=== PATIENT | female | born 1960 | race Caucasian/White ===

== ENCOUNTER → 2017-11-21 | Outpatient (REF) | payer MEDICARE, BC | LOC: M LAB REF 12:40 | DX: C44.622 Squamous cell carcinoma of skin of right upper limb, including shoulder (principal) | CPT/HCPCS: 88305 ==

== ENCOUNTER → 2018-07-03 | Outpatient (REF) | payer BC, MEDICARE | LOC: M LAB REF 17:37 | DX: L81.4 Other melanin hyperpigmentation (principal); L90.5 Scar conditions and fibrosis of skin ==

== ENCOUNTER → 2019-03-27 | Outpatient (REF) | payer MEDICARE, OTHER | LOC: M LAB LCGH 15:33 | PROVIDERS: ATTEND Physician Assistant | DX: C44.622 Squamous cell carcinoma of skin of right upper limb, including shoulder (principal) ==

== ENCOUNTER → 2019-05-05 | Outpatient (REF) | payer MEDICARE, OTHER | LOC: M LAB REF 20:20 | PROVIDERS: ATTEND Surgery | DX: C44.622 Squamous cell carcinoma of skin of right upper limb, including shoulder (principal) ==

== ENCOUNTER → 2019-05-21 | Outpatient (REF) | payer OTHER | LOC: M LAB REF 18:50 | PROVIDERS: ATTEND Surgery | DX: D04.61 Carcinoma in situ of skin of right upper limb, including shoulder (principal); D04.62 Carcinoma in situ of skin of left upper limb, including shoulder; L57.0 Actinic keratosis ==

== ENCOUNTER → 2019-09-24 | Outpatient (REF) | payer MEDICARE, OTHER | LOC: M LAB REF 15:31 | PROVIDERS: ATTEND Surgery | DX: C44.722 Squamous cell carcinoma of skin of right lower limb, including hip (principal) ==

== ENCOUNTER → 2019-11-13 | Outpatient (REF) | payer MEDICARE | LOC: M LAB REF 09:28 | PROVIDERS: ATTEND Surgery | DX: C44.622 Squamous cell carcinoma of skin of right upper limb, including shoulder (principal) ==